=== PATIENT | male | born 1975 | race Caucasian/White ===

== ENCOUNTER 2020-05-03 03:19 | Emergency (ER) | payer OTHER ==
[~2020-05-03] VITALS: Ht 165.1 cm; Wt 75.0 kg
[2020-05-03 03:24] VITALS: TEMP 98
[2020-05-03 04:20] VITALS: BP 130/80; PULSE 80
== END 2020-05-03 04:27 | disposition home or self-care (01) ==
LOC: COL.ER 03:19
DX: S61.211A Laceration without foreign body of left index finger without damage to nail, initial encounter (principal); W26.8XXA Contact with other sharp object(s), not elsewhere classified, initial encounter